=== PATIENT | male | born 1950 | race Caucasian/White ===

== ENCOUNTER 2016-08-24 10:53 | Day surgery (SDC) | payer MEDICARE ==
[2016-08-23 09:09] VITALS: BMI 22.6
[~2016-08-24 10:53] MED LIST: LACTATED RINGERS 1,000 ML IV SCH; LIDOCAINE 1% 20 ML VIAL (10MG/ML) FOR IV START INTRADERMA PRN
--- NOTE | 2016-08-24 11:14 | P.OP ---
Date of Procedure: 08/24/16 Preoperative Diagnosis: Screening colonoscopy Hypertension Hyperlipidemia Chronic low back pain Nicotine dependence Postoperative Diagnosis: Anal skin tags and 5mm flat polyp at 40 cm from anal verge Prostate enlargement Procedure(s) Performed: Colonoscopy with hot snare polypectomy x1 Implants: NA Anesthesia: MAC (ASA) Surgeon: Pooja Topete Pathology: other (colon polyp) Condition: stable Disposition: PACU Indications for Procedure: 65 years old male presents for first screening colonoscopy. No prior history of colon cancer or colon polyps. No family history of colon cancer. Informed consent obtained and he elected to undergo colonoscopy with possible biopsy Operative Findings: Anal skin tags Prostate enlargement Single 5mm flat polyp in the sigmoid colon Description of Procedure: The patient was brought to the endoscopy suite and placed in lateral decubitus position. IV sedation was given as per anesthesia team. Patient was on continuous vitals and pulse oximetry monitoring throughout the procedure. A timeout was performed to verify correct patient and correct procedure. Perianal examination did not show any external hemorrhoids. Digital rectal examination was performed. No masses or gross blood. Prostate enlargement noted. A well-lubricated Olympus colonoscope was passed per rectally and was gradually advanced beyond the sigmoid colon, splenic flexure, transverse colon, hepatic flexure and cecum. The ileocecal valve was visualized . The colonoscope was gradually withdrawn inspecting all the mucosal surfaces. Bowel prep was good. No AV malformations noted. Sigmoid diverticulosis noted without any evidence of acute diverticulitis. Single 5mm flat polyp noted in at 40 cms from the anal verge which was biopsied using cold bx forceps. The scope was gradually withdrawn and retroflexed in the rectum . Grade 1 internal hemorrhoids seen. Total withdrawal time was greater than 6 minutes . Patient tolerated the procedure well and was taken to post anesthesia care unit in stable condition. Recommend repeat colonoscopy in 5 years . Final Pathologic Diagnosis COLON, 40 CM, BIOPSY: ADENOMA.
[2016-08-24] MEDS ORDERED: LACTATED RINGERS 1,000 ML IV ONE (11:38)
[2016-08-24 11:43] VITALS: TEMP 98
[2016-08-24] MEDS ORDERED: LIDOCAINE 1% 20 ML VIAL (10MG/ML) FOR IV START INTRADERMA ONE (11:51)
[2016-08-24] MEDS ORDERED: PROPOFOL 10 MG/ML 20 ML VIAL IV ONE (12:03)
[2016-08-24] MEDS ORDERED: LIDOCAINE 1% INJ 10MG/ML (20 ML MDV) ONE (12:03)
[2016-08-24 12:37] VITALS: RESP 16
[2016-08-24 12:58] VITALS: BP 136/83; PULSE 68
== END 2016-08-24 13:28 | disposition home or self-care (01) ==
LOC: ORWHC2ENDO 10:53
PROVIDERS: ATTEND Surgery
DX: Z12.11 Encounter for screening for malignant neoplasm of colon (principal); D12.5 Benign neoplasm of sigmoid colon; K57.30 Diverticulosis of large intestine without perforation or abscess without bleeding; K64.0 First degree hemorrhoids; N40.0 Benign prostatic hyperplasia without lower urinary tract symptoms; I10 Essential (primary) hypertension; E78.5 Hyperlipidemia, unspecified; J44.9 Chronic obstructive pulmonary disease, unspecified; G89.29 Other chronic pain; M54.5 Low back pain; F17.200 Nicotine dependence, unspecified, uncomplicated; Z88.5 Allergy status to narcotic agent; Z79.1 Long term (current) use of non-steroidal anti-inflammatories (NSAID); Z79.899 Other long term (current) drug therapy
CPT/HCPCS: 45385; 88305

== ENCOUNTER 2016-09-15 09:15 | Day surgery (SDC) | payer MEDICARE ==
[2016-09-13 13:07] VITALS: BMI 22.6
--- NOTE | 2016-09-15 08:16 | P.GSHP ---
History of Present Illness H&P Date: 09/15/16 Chief Complaint: Righ inguinal hernia 65 yrs old male presents with right inguinal hernia - reducible associated with pain. No bowel obstruction. ROS Additionally reports: Constitutional: No fever, chills or rigors. No weight loss or loss of appetite. HEENT: No difficulty with hearing, vision and swallowing. Lymphatic: No axillary, inguinal and cervical swellings. Endocrine: No thyroid disorders. Denies history of diabetes. Respiratory: No chest pain, shortness of breath, and cough. No hemoptysis. Cardiovascular: No palpitations, irregular HR Gastrointestinal: Denies heartburn. No change in bowel habits. No nausea or vomiting. Genitourinary: No increase in urinary frequency or urgency. No hematuria. Musculoskeletal: No back pain, joint stiffness or pain. Neurologic: No history of seizure disorder and headaches. Psychiatric: Denies depression or anxiety . No suicidal ideation. Hematologic: Denies any abnormal mucosal bleeding or easy bruising.\\ Physical Exam Patient is a 65-year-old male. Constitutional: General Appearance: healthy-appearing, well-nourished, and well- developed. Level of Distress: NAD. Ambulation: ambulating normally. Psychiatric: Insight: good judgement. Orientation: to time, place, and person. Head: Head: normocephalic and atraumatic. Eyes: Lids and Conjunctivae: no discharge or pallor and non-injected. Sclerae: non-icteric. ENMT: Oropharynx: moist mucous membranes. Abdomen: Bowel Sounds: normal. Inspection and Palpation: no tenderness or guarding and soft and non-distended. Hernia: inguinal R; possible left inguinal as well. Musculoskeletal:: Motor Strength and Tone: normal and normal tone. Joints, Bones , and Muscles: normal movement of all extremities. Extremities: no cyanosis or edema. Neurologic: Gait and Station: normal gait and station. Cranial Nerves: grossly intact. Assessment / Plan 1. Right inuinal hernia possible bilateral 2. Informed consent obtained from the patient after explaining the risks, benefits and potential complications of laparoscopic /robotic inguinal hernia including bleeding, infection, bruising, DVT and recurrence and possibility of converting to open 3. Patient demonstrated understanding of the procedure and agreed to undergo laparoscopic/robotic inguinal hernia repair with mesh possible open 4. Expected post op course discussed including no heavy lifting >10 lbs for 6 weeks post surgery Preop orders: 1. Ancef 2 gm IVPB x1 2. Bilateral lower extremity SCDs 3. Heparin 5000 Units SQ injection x1 1. 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, "borderline diabetic", urinary urgency, spinal stenosis History of Any Multi-Drug Resistant Organisms: None Reported Past Surgical History: Back Surgery, Cholecystectomy, Orthopedic Surgery Additional Past Surgical History / Comment(s): thumb reconstruction rt hand, surgery rt hand three fingers from injury(partial ampuation first finger), mult back/cervical surgery-plate and screws, mccracken procedure rt ankle, Past Anesthesia/Blood Transfusion Reactions: Previous Problems w/ Anesthesia, Family History of Problems w/ Anesthesia, Motion Sickness Additional Past Anesthesia/Blood Transfusion Reaction / Comment(s): cardiac and respiratory arrest with two back surgeries done at another hospital in 1979 and 1981, no problems since with other surgeries. father had respiratory and cardiac problems with back surgery Past Psychological History: No Psychological Hx Reported Smoking Status: Current every day smoker Past Alcohol Use History: None Reported Additional Past Alcohol Use History / Comment(s): recovering alcoholic/ past drug use. smoked since age 12, down to 8-10 cigarettes daily Past Drug Use History: None Reported - Past Family History Father Family Medical History: Cancer Mother Family Medical History: Cancer Son(s) Family Medical History: Cancer Medications and Allergies Home Medications Medication Instructions Recorded Confirmed Type Acetaminophen [Tylenol] 1,000 mg PO TID 08/23/16 09/13/16 History Cholecalciferol [Vitamin D3] 1,000 unit PO DAILY 08/23/16 09/13/16 History Ibuprofen [Motrin] 800 mg PO Q6HR PRN 08/23/16 09/13/16 History Simvastatin [Zocor] 40 mg PO HS 08/23/16 09/13/16 History Vitamin B Complex 1 each PO DAILY 08/23/16 09/13/16 History Allergies Allergy/AdvReac Type Severity Reaction Status Date / Time codeine Allergy Anaphylaxis Verified 09/13/16 12:52 propoxyphene Allergy Anaphylaxis Verified 09/13/16 12:52 [From Misha]
[~2016-09-15 09:15] MED LIST changes: +DEXAMETHASONE SOD PHOSPHATE 10 MG/ML 1 ML VIAL IV ONE; +HEPARIN SODIUM,PORCINE 5,000 UNIT/ML 1 ML VIAL SQ ONE; -LACTATED RINGERS 1,000 ML IV SCH; -LIDOCAINE 1% 20 ML VIAL (10MG/ML) FOR IV START INTRADERMA PRN; +MIDAZOLAM 2 MG/2 ML VIAL IV PRN; +ONDANSETRON 4 MG/2 ML VIAL IVP ONE; +SCOPOLAMINE 1.5MG/72HR PATCH TRANSDERM ONE; +ceFAZolin 2 GM in SODIUM CHLORIDE 0.9% 100 ML IVPB ONE
[2016-09-15 10:02] LABS: Basophils # (A) 0.1 k/uL (0-0.2); Basophils % (A) 1 %; CH 32.2; CHCM 35.8; Eosinophils # (A) 0.4 k/uL (0-0.7); Eosinophils % (A) 4 %; HCT 47.5 % (39.0-53.0); HDW 2.91; HGB 16.3 gm/dL (13.0-17.5); Luc # (Auto) 0.12; Luc % (Auto) 1; Lymphocytes # (A) 1.9 k/uL (1.0-4.8); Lymphocytes % (A) 21 %; MCH 31.2 pg (25.0-35.0); MCHC 34.4 g/dL (31.0-37.0); MCV 90.7 fL (80.0-100.0); Mean Platelet Volume 7.9; Monocytes # (A) 0.4 k/uL (0-1.0); Monocytes % (A) 5 %; Neutrophils # (A) 6.2 k/uL (1.3-7.7); Neutrophils % (A) 69 %; RBC 5.24 m/uL (4.30-5.90); WBC 9.1 k/uL (3.8-10.6); WBC (Perox) 9.28
[2016-09-15] MEDS: LACTATED RINGERS 1,000 ML IV SCH ×2 (10:09→10:10)
[2016-09-15] MEDS ORDERED: LIDOCAINE 1% 20 ML VIAL (10MG/ML) FOR IV START INTRADERMA ONE (10:10)
[2016-09-15 10:17] LABS: Anion Gap 14 mmol/L; Blood Urea Nitrogen 18 mg/dL (9-20); Calcium 9.9 mg/dL (8.4-10.2); Carbon Dioxide 22 mmol/L (22-30); Chloride 106 mmol/L (98-107); Glucose 121 mg/dL (74-99); Non-African American GFR(MDRD) >60 (>60 ml/min/1.73 sqM); Potassium 4.3 mmol/L (3.5-5.1); Sodium 142 mmol/L (137-145)
[2016-09-15] MEDS ORDERED: LIDOCAINE 1% INJ 10MG/ML (20 ML MDV) ONE (12:34)
[2016-09-15] MEDS ORDERED: ePHEDrine 50 MG/ML 1 ML AMP ONE (12:34)
[2016-09-15] MEDS ORDERED: MIDAZOLAM 2 MG/2 ML VIAL ONE (12:34)
[2016-09-15] MEDS ORDERED: fentaNYL (PF) 50 MCG/ML 2 ML AMP ONE (12:34)
[2016-09-15] MEDS ORDERED: HYDROmorphone (PF) 1 MG/ML ONE (12:34)
[2016-09-15] MEDS ORDERED: NEOSTIGMINE 1 MG/ML 10 ML VIAL ONE (12:34)
[2016-09-15] MEDS ORDERED: SUCCINYLCHOLINE CHLORIDE 100 MG/5 ML SYR IV ONE (12:34)
[2016-09-15] MEDS ORDERED: ROCURONIUM BROMIDE 10 MG/ML 10 ML VIAL IV ONE (12:34)
[2016-09-15] MEDS ORDERED: GLYCOPYRROLATE 0.2 MG/ML 2 ML VIAL ONE (12:34)
[2016-09-15] MEDS ORDERED: PHENYLEPHRINE-0.9% NACL SYG 1 MG/10 ML SYRINGE ONE (12:34)
[2016-09-15] MEDS ORDERED: PROPOFOL 10 MG/ML 20 ML VIAL IV ONE (12:34)
[2016-09-15] MEDS ORDERED: BUPIVACAIN-EPI 0.25%-1:200,000 30 ML VIAL SQ ONE (13:15)
[2016-09-15] MEDS ORDERED: LACTATED RINGERS 1,000 ML IV ONE ×2 (13:28→15:50)
[2016-09-15 15:02] VITALS: TEMP 97.6
[2016-09-15] MEDS: HYDROmorphone 1 MG/ML 1 ML SYRINGE IVP PRN ×2 (15:08→15:13)
[2016-09-15 15:30] LABS: Glucose,Whole Blood 195 mg/dL (75-99)
[2016-09-15 15:39] VITALS: RESP 18
[2016-09-15] MEDS ORDERED: traMADol 50 MG TAB PO ONE (15:49)
[2016-09-15 16:38] VITALS: BP 129/78; PULSE 78
--- NOTE | 2016-09-20 13:40 | P.OP ---
Date of Procedure: 09/15/16 Preoperative Diagnosis: Right inguinal hernia Postoperative Diagnosis: Bilateral direct type inguinal hernias Procedure(s) Performed: Robotic-assisted laparoscopic bilateral inguinal hernia repair with mesh Implants: Covidien progrip x2 Anesthesia: ENDY local Surgeon: Pooja Topete Estimated Blood Loss (ml): 5 Pathology: none sent Condition: stable Disposition: PACU Indications for Procedure: 65 years old male presents with a right inguinal hernia. Informed consent obtained and he elected to undergo robotic-assisted laparoscopic right inguinal hernia repair with mesh possible bilateral in case of intraoperative findings of left inguinal hernia. Operative Findings: Bilateral direct type inguinal hernias Description of Procedure: The patient was brought to the operating room and placed in supine position. General anesthesia with endotracheal intubation was performed as per anesthesia team. Both arms were tucked against the abdominal wall and a shunt was positioned in lithotomy using yellowfin stirrups. A seaman catheter was inserted under sterile aseptic precautions. Chlorhexidine was used to prep the skin followed by application of sterile drapes and Ioban dressing. A timeout was performed to verify correct patient, correct procedure and correct side. Patient was confirmed to receive perioperative IV antibiotics, subcutaneous heparin 5000 units and bilateral SCDs were placed. A 2 mm skin incision was made in the left subcostal area and Veress needle was inserted to establish pneumoperitoneum to a pressure of 15 mmHg. A 1.5 cm supraumbilical incision was made which was deepened through the subcutaneous tissue . Two additional 8 mm skin incisions were made on either side of the midline approximately 8 cm away. A 5 mm 30 laparoscope was used to enter the peritoneum using direct Optiview technique. A 12 mm robotic trocar was inserted in the supraumbilical area and 8 mm robotic trocars were inserted on either side of the midline. The patient was placed in Trendelenburg position and the robot was brought in between the legs. The robotic arms including the camera arm were docked on the trocars. The robotic prograsp and monopolar scissors were introduced via arm 1 and 2 respectively. Upon inspection of the peritoneal cavity, bilateral direct hernias identified. The murphy anatomical landmarks including the pubic symphysis, median and medial umbilical ligaments and bilateral epigastric vessels were identified. Attention was focused on the left side first. Using monopolar scissors a peritoneal flap was created extending medially from the median umbilical ligament and laterally to the direct hernia space. Using gentle traction and countertraction the flap was developed posteriorly. Loose fibrofatty tissue was bluntly dissected. Medially the dissection was carried along the Sujit's ligament till pubic tubercle was identified. Care was taken to stay away from the urinary bladder. Dissection was carried out to leave the epigastric vessels against the anterior abdominal wall and laterally beyond the hernia defect. The direct hernia sac was completely reduced. The iliofemoral vessels were identified. The peritoneal reflection overlying the spermatic cord was also dissected off. Care was taken not to injure any gonadal vessels or spermatic cord. Enough inferior dissection was carried out 2 cm below the hernia defect. No indirect hernia noted. Attention was then focused on the right side where similar dissection was performed to identify the above-mentioned murphy anatomical landmarks. Gentle traction and countertraction helped in reduction of the hernia sac. No bleeding was encountered. The iliofemoral vessels, spermatic cord and vas deferens were protected at all times. Laparoscopic parietex progrip mesh was rolled and introduced through the 12 mm camera port. The right mesh was placed in the preperitoneal cavity with green portion overlying the pubic tubercle . The mesh was rolled upwards so that the mesh covered the direct , indirect inguinal hernia and the femoral hernia space without any kinks or folds. Similarly left parietex progrip mesh was rolled and introduced through the 12 mm camera port and secured over the right direct, indirect and femoral hernia space. The peritoneal flap was then sutured to the cut edge of the peritoneum using continuous 2-0 V lock sutures. The hernia sacs were completely reduced and the mesh lay flat without any kinks or folds. The 12 mm trocar site was closed with 0 vicryl x2 using Pascual Fontenot device. The incisions were closed using 4-0 Monocryl. Dermabond skin glue was applied. The sponge, instrument and needle count were correct 2. The testicles were palpated. Seaman catheter was removed at the end of the procedure
== END 2016-09-15 16:39 | disposition home or self-care (01) ==
LOC: OR 09:15
PROVIDERS: ATTEND Surgery
DX: K40.20 Bilateral inguinal hernia, without obstruction or gangrene, not specified as recurrent (principal); I10 Essential (primary) hypertension; E78.5 Hyperlipidemia, unspecified; J44.9 Chronic obstructive pulmonary disease, unspecified; F17.200 Nicotine dependence, unspecified, uncomplicated; Z88.5 Allergy status to narcotic agent; Z79.899 Other long term (current) drug therapy
CPT/HCPCS: 49650; 80048; 85025; C1781; J2250; J1644; J1100; J2710; J0690; J2405; J2001; J3010; J1170; J2370; J0330; J2704

== ENCOUNTER 2018-08-20 11:46 | Observation (INO) | payer MEDICARE ==
[2018-08-20] MEDS ORDERED: SODIUM CHLORIDE 0.9% 1,000 ML IV STA ×2 (12:09)
--- NOTE | 2018-08-20 12:12 | ED ---
Chest Pain HPI - General Chief Complaint: Chest Pain Stated Complaint: Chest pain Time Seen by Provider: 08/20/18 11:50 Source: RN notes reviewed, old records reviewed - History of Present Illness Initial Comments: Patient is a 67-year-old male presents emergency department today with 1 day of dull left-sided chest pain radiating down left arm. Patient states that he was seeing his primary care physician today and told him his complaints and was sent here via EMS. Patient had normal EKG at that time. He reports is a smoker and a diabetic. 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 Patient reports that was done 2017. Patient reports that he was feeling dizzy and lightheaded. He denies any nausea or vomiting or abdominal pain. - Related Data Home Medications Medication Instructions Recorded Confirmed Acetaminophen [Tylenol] 1,000 mg PO QAM 08/23/16 08/20/18 Simvastatin [Zocor] 40 mg PO HS 08/23/16 08/20/18 Acetaminophen Tab [Tylenol Tab] 500 mg PO HS 08/20/18 08/20/18 Aspirin EC [Ecotrin] 325 mg PO DAILY 08/20/18 08/20/18 Biotin 5 mg PO DAILY 08/20/18 08/20/18 Insulin Glargine,Hum.rec.anlog 7 unit SQ HS 08/20/18 08/20/18 [Basaglar Kwikpen U-100] metFORMIN HCL ER [Glucophage Xr] 1,000 mg PO [id number] 08/20/18 08/20/18 Allergies Allergy/AdvReac Type Severity Reaction Status Date / Time codeine Allergy Anaphylaxis Verified 08/20/18 12:31 propoxyphene Allergy Anaphylaxis Verified 08/20/18 12:31 [From Darvocet-N] Review of Systems ROS Statement: Those systems with pertinent positive or pertinent negative responses have been documented in the HPI. ROS Other: All systems not noted in ROS Statement are negative. EKG Findings - EKG Comments: EKG Findings:: EKG Normal sinus rhythm Abnormal QRS-T angle consider primary T wave abnormality. Vent rate 70 bpm, HI interval 150 ms. QRS duation 92 ms. Qt/ATc 386/416 ms. Past Medical History Past Medical History: COPD, Eye Disorder, Hyperlipidemia, Hypertension Additional Past Medical History / Comment(s): having mucus emesis when eating foods with first time eating of the day,no longer taking Rx for Htn,rt inguinal hernia,"borderline diabetes",legally blind rt eye History of Any Multi-Drug Resistant Organisms: None Reported Past Surgical History: Back Surgery, Cholecystectomy, Orthopedic Surgery Additional Past Surgical History / Comment(s): cervical fusion x2,lumbar fusion,lumbar laminectomy x2,rt thumb jt repair,rt partial amputation rt hand 5th digit,rt hand ORIF Past Anesthesia/Blood Transfusion Reactions: Previous Problems w/ Anesthesia, Family History of Problems w/ Anesthesia Additional Past Anesthesia/Blood Transfusion Reaction / Comment(s): had resp arrest in 1979 with back surgery and 1981 with resp & cardiac arrest with 2nd back surgery, has had several surgeries since then without complications. Father in 1969's had chills,tachycardia,and shakes with anesthesia. No hx blood transfusion Additional Past Alcohol Use History / Comment(s): smoked since age 12,1/2ppd - Past Family History Father Family Medical History: Cancer Additional Family Medical History / Comment(s): alcoholism, at age 82 with lung CA with mets Mother Family Medical History: Cancer Additional Family Medical History / Comment(s): brain CA Son(s) Family Medical History: Cancer General Exam - General Exam Comments Initial Comments: Patient is a 67-year-old male. Alert and oriented 3. Patient appears in moderate discomfort. General appearance: alert, in no apparent distress Head exam: Present: atraumatic, normocephalic, normal inspection Eye exam: Present: normal appearance, PERRL, EOMI. Absent: scleral icterus, conjunctival injection, periorbital swelling ENT exam: Present: normal exam, mucous membranes moist Neck exam: Present: normal inspection. Absent: tenderness, meningismus, lymphadenopathy Respiratory exam: Present: normal lung sounds bilaterally. Absent: respiratory distress, wheezes, rales, rhonchi, stridor Cardiovascular Exam: Present: regular rate, normal rhythm, normal heart sounds, other (Normal pulses in all four extremities noted.). Absent: systolic murmur, diastolic murmur, rubs, gallop, clicks GI/Abdominal exam: Present: soft, normal bowel sounds. Absent: distended, tenderness, guarding, rebound, rigid Extremities exam: Present: normal inspection, full ROM, normal capillary refill. Absent: tenderness, pedal edema, joint swelling, calf tenderness Back exam: Present: normal inspection Neurological exam: Present: alert, oriented X3, CN II-XII intact Psychiatric exam: Present: normal affect, normal mood Skin exam: Present: warm, dry, intact, normal color. Absent: rash Course Vital Signs 08/20/18 12:05 Temperature 97.2 F L Pulse Rate 71 Respiratory 18 Rate Blood Pressure 156/95 O2 Sat by Pulse 98 Oximetry Chest Pain MDM - MDM Patient is a 67-year-old male with history of diabetes a smoker presents emergency department today with chest pain. He was seen his PCP office complaint of chest pain and dizziness and was sent here via EMS. At this time EKG shows no acute ST elevation. There are some T-wave inversion over lead 3. He has a positive family history of heart disease. Lab work was otherwise unremarkable. Chest x-ray shows chronic pain changes without acute cardio pulmonary process. Possible full-thickness rotator cuff tear on the right. At this time and like to admit the Patient for ruling out acute coronary syndrome related to chest pain. Disposition Clinical Impression: Chest pain, Diabetes, Smoker Disposition: ADMITTED IP TO THIS HOSP Condition: Stable Is patient prescribed a controlled substance at d/c from ED?: No Referrals: Alexandro Emery MD [Primary Care Provider] - 1-2 days Time of Disposition: 14:55
[2018-08-20 12:54] LABS: Basophils # (A) 0.1 k/uL (0-0.2); Basophils % (A) 1 %; Eosinophils # (A) 0.6 k/uL (0-0.7); Eosinophils % (A) 6 %; HCT 48.3 % (39.0-53.0); Lymphocytes # (A) 1.9 k/uL (1.0-4.8); Lymphocytes % (A) 21 %; MCH 31.1 pg (25.0-35.0); MCV 94.2 fL (80.0-100.0); Mean Platelet Volume 7.4; Monocytes # (A) 0.5 k/uL (0-1.0); Monocytes % (A) 5 %; Neutrophils # (A) 5.9 k/uL (1.3-7.7); Neutrophils % (A) 65 %; Platelet Count 211 k/uL (150-450); RBC 5.13 m/uL (4.30-5.90); RDW 12.8 % (11.5-15.5); WBC 9.1 k/uL (3.8-10.6)
--- NOTE | 2018-08-20 13:15 | XR ---
EXAMINATION TYPE: XR chest 2V DATE OF EXAM: 08/20/2018 COMPARISON: None HISTORY: 67-year-old male with chest pain TECHNIQUE: PA and lateral views FINDINGS: Heart normal size. Aorta and pulmonary vasculature within normal limits. Some strandy atelectasis in the lower lungs. No consolidation or pleural effusion. Loss of the subacromial space on the right. IMPRESSION: Chronic appearing changes without acute cardiopulmonary process. Possible full-thickness rotator cuff tear on the right.
[2018-08-20 13:30] LABS: Partial Thromboplastin Time 24.6 sec (22.0-30.0); Prothrombin Time 10.4 sec (9.0-12.0)
[2018-08-20 13:31] LABS: ALT 30 U/L (21-72); AST 14 U/L (17-59); Albumin 4.1 g/dL (3.5-5.0); Alkaline Phosphatase 41 U/L (38-126); Anion Gap 8 mmol/L; Blood Urea Nitrogen 19 mg/dL (9-20); Calcium 9.4 mg/dL (8.4-10.2); Carbon Dioxide 22 mmol/L (22-30); Chloride 111 mmol/L (98-107); Glucose 111 mg/dL (74-99); Potassium 4.2 mmol/L (3.5-5.1); Sodium 141 mmol/L (137-145); Total Bilirubin 0.5 mg/dL (0.2-1.3); Total Protein 6.7 g/dL (6.3-8.2)
[2018-08-20] MEDS ORDERED: NITROGLYCERIN SL TABS 0.4 MG TAB SUBLINGUAL PRN (14:59)
[2018-08-20 16:24] LABS: Glucose,Whole Blood 100 mg/dL (75-99)
[2018-08-20] MEDS: MORPHINE SULFATE 4 MG/ML SYRINGE IV PRN ×2 (18:10→20:43)
[2018-08-20 20:15] LABS: Glucose,Whole Blood 161 mg/dL (75-99)
[2018-08-20] MEDS ORDERED: INSULIN DETEMIR (LEVEMIR) 100 UNIT/ML SYR SQ SCH (21:00)
[2018-08-20] MEDS ORDERED: ACETAMINOPHEN TAB 500 MG TAB PO SCH (21:00)
[2018-08-20] MEDS ORDERED: ATORVASTATIN 20 MG TAB PO SCH (21:00)
[2018-08-20] MEDS ORDERED: NICOTINE 14MG/24HR PATCH TRANSDERM SCH (23:00)
--- NOTE | 2018-08-21 01:34 | HP ---
HISTORY AND PHYSICAL DATE OF ADMISSION: August 20, 2018. DATE OF SERVICE: August 20, 2018. PRESENTING COMPLAINT: Chest pain. HISTORY OF PRESENTING COMPLAINT: Pleasant 67 -year-old patient of Dr. Emery whose chronic stable medical conditions include COPD, hyperlipidemia, decreased vision in the right eye, only can perceive light and diabetes. Around 2 o'clock yesterday, patient developed pain in the left precordial area and above infraclavicular area, pretty severe. This was present off and on. The pain did go up to the neck and the arm. Also the pain was present when he took a deep breath, more so with body movements. There was no dizziness. No lightheadedness. No shortness of breath. Hence little perspiration. The pain has persisted. Thus, the patient decided to come in to rule out a cardiac cause. Does not remember doing any excessive physical activity. REVIEW OF SYSTEMS: CONSTITUTIONAL: None. HEENT: Decreased vision right eye. RESPIRATORY: As above. CARDIOVASCULAR: As above. GASTROINTESTINAL: None. GENITOURINARY: None. MUSCULOSKELETAL: As above. DERMATOLOGICAL, HEMATOLOGIC, LYMPHATIC: none. PSYCHIATRY none. NEUROLOGICAL none. PAST MEDICAL HISTORY: COPD, hyperlipidemia, decreased vision in the right eye, diabetes. PAST SURGICAL HISTORY: Back surgery, cholecystectomy, orthopedic surgeries, cervical fusion x2, lumbar fusion, lumbar laminectomy, right thumb joint repair, partial amputation, right hand 5th digit, right hand ORIF, left subclavian stent with 90% occlusion left arm, also had respiratory arrest in 1979 with back surgery in 1991 with respiratory and cardiac arrest with second back surgery and has also had multiple surgeries since then without complications. SOCIAL HISTORY: Smoking 1/2 a pack a day over 55 years. No alcohol. . Currently laid off. Works at the [employer] in [place]. FAMILY HISTORY: Of cancer, alcoholism, and lung cancer. HOME MEDICATIONS: 1. Insulin 70 units subcu q.h.s. 2. Aspirin 325 mg a day. 3. Glucophage XR 1000 mg with breakfast. 4. Biotin 5 mg p.o. daily. 5. Tylenol 500 mg q.h.s. 6. Zocor 40 mg q.h.s. 7. Tylenol 1000 mg p.o. daily. ALLERGIES: ALLERGIES TO CODEINE AND DARVOCET-N 100. EXAMINATION: VITAL SIGNS: Temperature 97.9, pulse 65, respiration 16, blood pressure 123/59, pulse ox 96 percent on room air. GENERAL APPEARANCE: Lying in bed, awake. EYES: Pupils equal. Conjunctivae normal. Decreased vision in the right eye. RESPIRATORY: Effort normal. LUNGS: Slightly decreased breath sounds. CARDIOVASCULAR: First and second sounds normal. No edema. ABDOMEN: Soft, nontender. Liver and spleen not palpable. LYMPHATICS: No lymph nodes palpable in the neck and axilla. PSYCHIATRY: Alert and oriented x3. Mood and affect normal. NEUROLOGICAL: Decreased vision in the right eye. No facial asymmetry. Power and sensation grossly intact. MUSCULOSKELETAL: Reproducible pain in the left anterior chest wall. INVESTIGATIONS: White count 9.1, hemoglobin 16.0, potassium 4.2. BUN and creatinine is normal. Troponin times two negative. EKG tracing personally reviewed by me shows normal sinus rhythm, some normal some T-wave changes in the inferior leads. Chest x-ray film personally reviewed by me shows lung gutierrez to be clear. ASSESSMENT: 1. Left anterior chest wall pain, musculoskeletal. Most likely reproducible, pleuritic and musculoskeletal nature, but given slight subtle EKG changes and risk factors, cardiac cause needs to be ruled out. 2. Chronic obstructive pulmonary disease in a current smoker. 3. Hyperlipidemia. 4. Decreased vision in the right eye. 5. Diabetes mellitus type 2, chronically on insulin. PLAN: Home medications are resumed. Cardiac enzymes are in place. Accu-Cheks will be followed. Cardiology was consulted. Care was discussed with the patient. Copy to Dr. Emery. MMODL / IJN: [id number] /
[2018-08-21] MEDS: MORPHINE SULFATE 4 MG/ML SYRINGE IV PRN ×2 (02:05→03:13)
[2018-08-21 03:55] LABS: Cholesterol 99 mg/dL (<200); HDL Cholesterol 33 mg/dL (40-60); LDL Cholesterol,Calculated 46 mg/dL (0-99); Triglycerides 101 mg/dL (<150)
[2018-08-21 06:51] LABS: Glucose,Whole Blood 105 mg/dL (75-99)
[2018-08-21] MEDS ORDERED: metFORMIN 500 MG TAB PO SCH (07:30)
[2018-08-21] MEDS ORDERED: REGADENOSON 0.4 MG/5 ML SYRINGE IV ONE (07:46)
[2018-08-21] MEDS ORDERED: CAFFEINE CITRATE 60 MG/3 ML VIAL IV PRN (07:46)
[2018-08-21 07:48] VITALS: RESP 18
--- NOTE | 2018-08-21 07:51 | P.CRDCN ---
History of Present Illness Consult date: 08/21/18 Chief complaint: cp History of present illness: This is a pleasant 67-year-old gentleman with a past medical history significant for diabetes, hypertension, dyslipidemia, and history of smoking, was referred from his primary care physician for further evaluation of chest discomfort. For the last few days, the patient has been experiencing intermittent episodes of chest discomfort. Is in the mid of the chest, as a sharp kind of discomfort , without any radiation, and without any significant symptoms of shortness of breath, dizziness or light this, or syncope. The EKG showed sinus rhythm with nonspecific changes inferiorly. The cardiac enzymes were checked and came in to be unremarkable. The chest x-ray showed evidence off left sided rotator cuff tear. 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 Past Anesthesia/Blood Transfusion Reactions: Previous Problems w/ Anesthesia, Family History of Problems w/ Anesthesia Additional Past Anesthesia/Blood Transfusion Reaction / Comment(s): had resp arrest in 1979 with back surgery and 1981 with resp & cardiac arrest with 2nd back surgery, has had several surgeries since then without complications. Father in 1969's had chills,tachycardia,and shakes with anesthesia. 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 - Past Family History Father Family Medical History: Cancer Additional Family Medical History / Comment(s): alcoholism, at age 82 with lung CA with mets Mother Family Medical History: Cancer Additional Family Medical History / Comment(s): brain CA Son(s) Family Medical History: Cancer Medications and Allergies Home Medications Medication Instructions Recorded Confirmed Type Acetaminophen [Tylenol] 1,000 mg PO QAM 08/23/16 08/20/18 History Simvastatin [Zocor] 40 mg PO HS 08/23/16 08/20/18 History Acetaminophen Tab [Tylenol Tab] 500 mg PO HS 08/20/18 08/20/18 History Aspirin EC [Ecotrin] 325 mg PO DAILY 08/20/18 08/20/18 History Biotin 5 mg PO DAILY 08/20/18 08/20/18 History Insulin Glargine,Hum.rec.anlog 7 unit SQ HS 08/20/18 08/20/18 History [Basaglar Kwikpen U-100] metFORMIN HCL ER [Glucophage Xr] 1,000 mg PO AC-BRKFST 08/20/18 08/20/18 History Allergies Allergy/AdvReac Type Severity Reaction Status Date / Time codeine Allergy Anaphylaxis Verified 08/20/18 12:31 propoxyphene Allergy Anaphylaxis Verified 08/20/18 12:31 [facility] Physical Exam Vitals: Vital Signs Temp Pulse Pulse Resp BP BP Pulse Ox 08/21/18 03:26 16 08/21/18 03:18 97.5 F L 66 16 107/70 97 08/20/18 23:51 97.6 F 60 18 123/75 98 08/20/18 23:34 16 08/20/18 20:00 16 08/20/18 19:41 97.9 F 65 16 123/69 96 08/20/18 16:00 18 08/20/18 15:45 97.4 F L 62 18 143/87 99 08/20/18 15:09 71 18 142/87 98 08/20/18 13:11 69 18 147/89 92 L 08/20/18 12:11 77 18 156/96 98 08/20/18 12:05 97.2 F L 71 18 156/95 98 Intake and Output 08/20/18 08/21/18 08/21/18 22:59 06:59 14:59 Intake Total 200 Balance 200 Intake: Oral 200 Other: Voiding Method Toilet Toilet # Voids 1 - Constitutional General appearance: no acute distress - Respiratory Respiratory: bilateral: CTA - Cardiovascular Rhythm: regular Heart sounds: normal: S1, S2 Results 08/20/18 12:17 08/20/18 13:11 Cardiac Enzymes 08/20/18 08/20/18 08/20/18 Range/Units 13:11 13:11 18:42 AST 14 L (17-59) U/L Troponin I <0.012 <0.012 (0.000-0.034) ng/mL 08/21/18 Range/Units 01:08 AST (17-59) U/L Troponin I <0.012 (0.000-0.034) ng/mL Coagulation 08/20/18 Range/Units 13:11 PT 10.4 (9.0-12.0) sec APTT 24.6 (22.0-30.0) sec Lipids 08/20/18 Range/Units 13:11 Triglycerides 101 (<150) mg/dL Cholesterol 99 (<200) mg/dL HDL Cholesterol 33 L (40-60) mg/dL CBC 08/20/18 Range/Units 12:17 WBC 9.1 (3.8-10.6) k/uL RBC 5.13 (4.30-5.90) m/uL Hgb 16.0 (13.0-17.5) gm/dL Hct 48.3 (39.0-53.0) % Plt Count 211 (150-450) k/uL Comprehensive Metabolic Panel 08/20/18 Range/Units 13:11 Sodium 141 (137-145) mmol/L Potassium 4.2 (3.5-5.1) mmol/L Chloride 111 H (98-107) mmol/L Carbon Dioxide 22 (22-30) mmol/L BUN 19 (9-20) mg/dL Creatinine 0.77 (0.66-1.25) mg/dL Glucose 111 H (74-99) mg/dL Calcium 9.4 (8.4-10.2) mg/dL AST 14 L (17-59) U/L ALT 30 (21-72) U/L Alkaline Phosphatase 41 (38-126) U/L Total Protein 6.7 (6.3-8.2) g/dL Albumin 4.1 (3.5-5.0) g/dL Current Medications Generic Name Dose Route Start Last Admin Trade Name Freq PRN Reason Stop Dose Admin Acetaminophen 1,000 mg 08/21/18 09:00 Tylenol Tab PO QAM CHAMP Acetaminophen 500 mg 08/20/18 21:00 08/20/18 20:43 Tylenol Tab PO 500 mg HS CHAMP Administration Aspirin 325 mg 08/21/18 09:00 Aspirin PO DAILY CHAMP Atorvastatin Calcium 20 mg 08/20/18 21:00 08/20/18 20:43 Lipitor PO 20 mg HS CHAMP Administration Insulin Detemir 7 unit 08/20/18 21:00 08/20/18 20:44 Levemir SQ 7 unit HS [facility]–1983 Administration Metformin HCl 500 mg 08/21/18 07:30 Glucophage PO BID-W/MEALS CHAMP Morphine Sulfate 4 mg 08/20/18 14:59 08/21/18 03:13 Morphine Sulfate (Inj) IV 4 mg Q5M PRN Administration Chest Pain Nicotine 1 patch 08/20/18 23:00 08/20/18 23:53 Habitrol 14mg/24hr Patch TRANSDERM 1 patch DAILY@2100 CHAMP Administration Nitroglycerin 0.4 mg 08/20/18 14:59 Nitrostat SUBLINGUAL Q5M PRN Chest Pain Intake and Output 08/20/18 08/21/18 08/21/18 22:59 06:59 14:59 Intake Total 200 Balance 200 Intake: Oral 200 Other: Voiding Method Toilet Toilet # Voids 1 08/20/18 12:17 08/20/18 13:11 Assessment and Plan Assessment: Assessment #1 intermittent episodes of chest discomfort #2 multiple risk factors for CAD including diabetes, hypertension, dyslipidemia , and history of smoking Plan #1 the patient was ruled out for acute coronary event #2 I am concerned about severe underlying coronary artery disease. I will obtain a stress test. #3 echocardiogram was Doppler #4 follow-up with the patient Thank you for allowing us participate in his care and we'll continue following up with the patient
[2018-08-21] MEDS ORDERED: NON-FORMULARY DRUG (Aspirin Ec 325 MG) PO SCH (09:00)
[2018-08-21] MEDS ORDERED: NON-FORMULARY DRUG (Biotin [Biotin] 5 MG) PO SCH (09:00)
[2018-08-21] MEDS ORDERED: ACETAMINOPHEN TAB 500 MG TAB PO SCH (09:00)
[2018-08-21] MEDS ORDERED: ASPIRIN 325 MG TAB PO SCH (09:00)
[2018-08-21 11:57] LABS: Glucose,Whole Blood 162 mg/dL (75-99)
--- NOTE | 2018-08-21 12:42 | NM ---
EXAMINATION TYPE: NM stress lexiscan cardiolite DATE OF EXAM: 08/21/2018 COMPARISON: NONE HISTORY: History of tobacco use, hypercholesteremia, and family history of coronary artery disease pr ior heart catheterization presents with chest pain TECHNIQUE: After the intravenous administration of 9.58 mCi Tc 99m Sestamibi - Cardiolite resting SP ECT images acquired 45 minutes post injection. The patient received 0.4mg Lexiscan, 25.4 mCi Tc 99m Sestamibi - Stress images obtained [address] injection FINDINGS: Review of stress and rest SPECT images demonstrates no distinct perfusion abnormality. Gated analysi s shows normal wall motion with an estimated left ventricular ejection fraction of 71 %. IMPRESSION: No scintigraphic evidence for reversible ischemia.
[2018-08-21 13:00] LABS: Hemoglobin A1C 6.8 % (4.0-6.0)
[2018-08-21 15:52] VITALS: BP 128/71; PULSE 69; TEMP 98.3
--- NOTE | 2018-08-21 19:01 | ECHOF ---
Referral Reason:cp MEASUREMENTS -------- HEIGHT: 165.1 cm WEIGHT: 66.7 kg BP: IVSd: 1.2 cm (0.6 - 1.1) LVIDd: 3.9 cm (3.9 - 5.3) LVPWd: 1.1 cm (0.6 - 1.1) IVSs: 1.4 cm LVIDs: 4.0 cm LVPWs: 1.4 cm LA Diam: 3.3 cm (2.7 - 3.8) Ao Diam: 2.7 cm (2.0 - 3.7) AV Cusp: 1.8 cm (1.5 - 2.6) LA Diam: 3.4 cm (2.7 - 3.8) MV EXCURSION: 17.701 mm (> 18.000) MV EF SLOPE: 123 mm/s (70 - 150) EPSS: 0.7 cm MV E Cheng: 0.60 m/s MV DecT: 195 ms MV A Cheng: 0.81 m/s MV E/A Ratio: 0.74 RAP: 5.00 mmHg RVSP: 16.30 mmHg FINDINGS -------- Sinus rhythm. This was a technically adequate study. The left ventricular size is normal. There is borderline concentric left ventricular hypertrophy. Overall left ventricular systolic function is normal with, an EF between 55 - 60 %. The right ventricle is normal in size. The left atrial size is normal. The right atrial size is normal. The aortic valve is trileaflet, and appears structurally normal. No aortic stenosis or regurgitation. Mild mitral annular calcification present. Mild mitral regurgitation is present. Mild tricuspid regurgitation present. There is no evidence of pulmonary hypertension. The right v entricular systolic pressure, as measured by Doppler, is 16.30mmHg. There is no pulmonic regurgitation present. The aortic root size is normal. There is no pericardial effusion. CONCLUSIONS -------- 1. The left ventricular size is normal. 2. There is borderline concentric left ventricular hypertrophy. 3. Overall left ventricular systolic function is normal with, an EF between 55 - 60 %. 4. The right ventricle is normal in size. 5. The left atrial size is normal. 6. The right atrial size is normal. 7. The aortic valve is trileaflet, and appears structurally normal. No aortic stenosis or regurgitati on. 8. Mild mitral annular calcification present. 9. Mild mitral regurgitation is present. 10. Mild tricuspid regurgitation present. 11. There is no evidence of pulmonary hypertension. 12. The right ventricular systolic pressure, as measured by Doppler, is 16.30mmHg. 13. There is no pulmonic regurgitation present. 14. The aortic root size is normal. 15. There is no pericardial effusion. PRODUCTION RECOVERY OPERATOR: Aiad Escudero RDCS
--- NOTE | 2018-08-21 20:23 | EST ---
EXERCISE STRESS DATE OF SERVICE: 08/21/2018 AGE: 67 SEX: Male. HT: 5'6" WT: 147 pounds. PROTOCOL: Lexiscan Cardiolite STAGE: DURATION OF EXERCISE: HEART RATE REST: 70 BLOOD PRESSURE REST: 159/62 MAXIMUM HEART RATE ACHIEVED: 95 MAXIMUM BLOOD PRESSURE: 159/62 85% MPHR: 100% MPHR: METS: INDICATIONS: Chest pain. CLINICAL INFORMATION: STRESS DATA: Pre-testing physical examination showed heart rate of 70, pressure 159/62 mmHg. Baseline EKG showed sinus mechanism. Lexiscan 0.4 mg was given over 15 seconds per protocol. Max heart rate was 95 beats per minute. Maximum pressure was 147/70 mmHg. Clinically the patient did not have any symptoms of chest pain or discomfort and the EKG did not show any significant changes. CONCLUSION: 1. Nondiagnostic electrocardiogram stress testing in response to Lexiscan. 2. Please follow up on the Cardiolite portion on separate report. MMODL / IJN: [id number] /
--- NOTE | 2018-08-22 07:06 | DS ---
DISCHARGE SUMMARY DATE OF ADMISSION: 08/20/2018 DATE OF DISCHARGE: 08/21/2018 FINAL DIAGNOSES: 1. Left anterior chest wall , likely musculoskeletal. 2. Chronic obstructive pulmonary disease, in a current smoker. 3. Hyperlipidemia. 4. Decreased vision in the right eye. 5. Diabetes mellitus type 2, chronically on insulin. HOSPITAL COURSE: This patient presented with left-sided chest pain, reproducible. Troponins were negative. Seen by Cardiology. Did have a nuclear stress test per Cardiology. Patient was cleared. PHYSICAL EXAMINATION: On examination, temperature 98.3 pulse 69, respiration 18, blood pressure 128/71, pulse ox 96% on room air. CARDIOVASCULAR: First and second sounds normal. Left anterior chest wall reproducible pain. CONSULTATION: Dr. Helms from Cardiology. DISCHARGE MEDICATIONS: 1. Tylenol 1000 mg p.o. daily. 2. Zocor 40 mg q.h.s. 3. Aspirin 325 p.o. daily. 4. Biotin 5 mg p.o. daily. 5. Insulin glargine 7 units subcu q.h.s. 6. Glucophage XR 1000 mg p.o. with breakfast. 7. Nicotine 14 mg patch. Follow up with Dr. Emery in 3 days. Follow up with Dr. Helms in 2 weeks. MMODL / IJN: [id number] /
== END 2018-08-21 16:00 | disposition home or self-care (01) ==
LOC: EC 11:46 → 1SOBS 15:03
PROVIDERS: ADMIT Hospitalist; ATTEND Hospitalist
DX: R07.89 Other chest pain (principal); E11.9 Type 2 diabetes mellitus without complications; I10 Essential (primary) hypertension; R42 Dizziness and giddiness; J44.9 Chronic obstructive pulmonary disease, unspecified; F17.210 Nicotine dependence, cigarettes, uncomplicated; M75.100 Unspecified rotator cuff tear or rupture of unspecified shoulder, not specified as traumatic; E78.5 Hyperlipidemia, unspecified; H54.8 Legal blindness, as defined in USA; Z79.82 Long term (current) use of aspirin; Z79.4 Long term (current) use of insulin; Z88.5 Allergy status to narcotic agent; Z90.49 Acquired absence of other specified parts of digestive tract; Z98.1 Arthrodesis status; Z89.021 Acquired absence of right finger(s); F10.21 Alcohol dependence, in remission; Z87.09 Personal history of other diseases of the respiratory system; Z86.74 Personal history of sudden cardiac arrest; Z95.828 Presence of other vascular implants and grafts; Z80.1 Family history of malignant neoplasm of trachea, bronchus and lung; Z81.1 Family history of alcohol abuse and dependence; Z82.49 Family history of ischemic heart disease and other diseases of the circulatory system
CPT/HCPCS: 96374; 96376 ×2; 96361; 99285; 36415; 93005; 93017; 93306; 83880; 80061; 80053; 83735; 84484 ×2; 85025; 85610; 85730; 83036; 71046; 78452; G0378 ×2; A9500; S4990; J2270 ×2; J2785

== ENCOUNTER 2019-06-24 15:28 | Emergency (ER) | payer MEDICARE ==
--- NOTE | 2019-06-24 16:03 | ED ---
Headache HPI - General Source: patient, RN notes reviewed Mode of arrival: ambulatory Limitations: no limitations <Hugo Ariza - Last Filed: 06/24/19 16:01> <Alexandro Ramos - Last Filed: 06/24/19 17:14> - General Stated Complaint: headache Time Seen by Provider: 06/24/19 16:00 - History of Present Illness Initial Comments: 68-year-old presents emergency Department with chief complaint of headache since Sunday morning. Patient states this is typical for him. He normally does not get headaches. Patient states he only has vision of his left eye secondary to being blind in his right since . Patient states he is having some visual changes on the left. Denies any trauma denies fevers or chills. Patient states the pain is at the base of his head and goes radiates up. His been taking Tylenol twice a day. (Hugo Ariza) - Related Data Home Medications Medication Instructions Recorded Confirmed Acetaminophen [Tylenol] 1,000 mg PO QAM 08/23/16 08/20/18 Simvastatin [Zocor] 40 mg PO HS 08/23/16 08/20/18 Acetaminophen Tab [Tylenol] 500 mg PO HS 08/20/18 08/20/18 Aspirin EC [Ecotrin] 325 mg PO DAILY 08/20/18 08/20/18 Biotin 5 mg PO DAILY 08/20/18 08/20/18 Insulin Glargine,Hum.rec.anlog 7 unit SQ HS 08/20/18 08/20/18 [Basaglar Kwikpen U-100] metFORMIN HCL ER [Glucophage Xr] 1,000 mg PO AC-BRKFST 08/20/18 08/20/18 Previous Rx's Medication Instructions Recorded Nicotine 14Mg/24Hr Patch [Habitrol] 1 patch TRANSDERM DAILY@2100 #14 08/21/18 patch Allergies Allergy/AdvReac Type Severity Reaction Status Date / Time codeine Allergy Anaphylaxis Verified 06/24/19 16:04 propoxyphene Allergy Anaphylaxis Verified 06/24/19 16:04 [From Misha] Review of Systems ROS Other: All systems not noted in ROS Statement are negative. <Hugo Ariza - Last Filed: 06/24/19 16:01> ROS Other: All systems not noted in ROS Statement are negative. <RoskoppAlexandro Dez - Last Filed: 06/24/19 17:14> ROS Statement: Those systems with pertinent positive or pertinent negative responses have been documented in the HPI. 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 Past Anesthesia/Blood Transfusion Reactions: Previous Problems w/ Anesthesia, Family History of Problems w/ Anesthesia Additional Past Anesthesia/Blood Transfusion Reaction / Comment(s): had resp arrest in 1979 with back surgery and 1981 with resp & cardiac arrest with 2nd back surgery, has had several surgeries since then without complications. Father in 1969's had chills,tachycardia,and shakes with anesthesia. 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 - Past Family History Father Family Medical History: Cancer Additional Family Medical History / Comment(s): alcoholism, at age 82 with lung CA with mets Mother Family Medical History: Cancer Additional Family Medical History / Comment(s): brain CA Son(s) Family Medical History: Cancer <Hugo Ariza - Last Filed: 06/24/19 16:01> Course Vital Signs 06/24/19 06/24/19 06/24/19 16:00 16:04 17:04 Temperature 97.6 F Pulse Rate 83 70 69 Respiratory 20 20 20 Rate Blood Pressure 159/89 147/70 148/73 O2 Sat by Pulse 98 97 98 Oximetry Disposition <Hugo Ariza - Last Filed: 06/24/19 16:01> Is patient prescribed a controlled substance at d/c from ED?: No <Alexandro Ramos - Last Filed: 06/24/19 17:14> Clinical Impression: Headache, Cervical sprain Disposition: HOME SELF-CARE Condition: Good Instructions (If sedation given, give patient instructions): Acute Headache (ED) Referrals: Alexandro Emery MD [Primary Care Provider] - 1-2 days
[2019-06-24 16:04] VITALS: RESP 20; TEMP 97.6
--- NOTE | 2019-06-24 16:52 | CT ---
EXAMINATION TYPE: CT brain wo con DATE OF EXAM: 06/24/2019 COMPARISON: None HISTORY: headache CT DLP: 1063.4 mGycm Automated exposure control for dose reduction was used. Multiple axial sections were obtained of the brain without contrast. FINDINGS: Ventricles have normal size. There is no mass effect nor midline shift. There is no sign of intracran ial hemorrhage. Calvarium is intact. IMPRESSION: Negative unenhanced head CT scan.
[2019-06-24 17:11] VITALS: BP 148/73; PULSE 69
[2019-06-24] MEDS ORDERED: DEXAMETHASONE 4 MG TAB PO STA (17:13)
[2019-06-24] MEDS ORDERED: KETOROLAC 60 MG/2 ML VIAL IM STA (17:13)
--- NOTE | 2019-06-24 18:11 | ED ---
Headache HPI - General Chief Complaint: Headache Stated Complaint: headache Time Seen by Provider: 06/24/19 16:00 Source: RN notes reviewed, old records reviewed Mode of arrival: ambulatory Limitations: no limitations - History of Present Illness Initial Comments: This is a 60-year-old male here for evaluation of neck pain and headache, headache 5 days. No trauma noted. No fevers no nausea vomiting. Patient has history of neck disease with back surgery patient is concerned for character of her pain persisted. Patient states he does not want pain medication is Benedick the pain medication in the past. He denies fevers nausea vomiting or any neurological changes. Patient just concerned over persistence of headache MD Complaint: headache -: days(s) (5) Onset Description: gradual Location: occipital Severity: moderate Severity scale (1-10): 4 Quality: aching Consistency: intermittent Improves With: nothing Worsens With: none Associated Symptoms: nausea Treatments Prior to Arrival: none - Related Data Home Medications Medication Instructions Recorded Confirmed Acetaminophen [Tylenol] 1,000 mg PO QAM 08/23/16 08/20/18 Simvastatin [Zocor] 40 mg PO HS 08/23/16 08/20/18 Acetaminophen Tab [Tylenol] 500 mg PO HS 08/20/18 08/20/18 Aspirin EC [Ecotrin] 325 mg PO DAILY 08/20/18 08/20/18 Biotin 5 mg PO DAILY 08/20/18 08/20/18 Insulin Glargine,Hum.rec.anlog 7 unit SQ HS 08/20/18 08/20/18 [Basaglar Kwikpen U-100] metFORMIN HCL ER [Glucophage Xr] 1,000 mg PO AC-BRKFST 08/20/18 08/20/18 Previous Rx's Medication Instructions Recorded Nicotine 14Mg/24Hr Patch [Habitrol] 1 patch TRANSDERM DAILY@2100 #14 08/21/18 patch Allergies Allergy/AdvReac Type Severity Reaction Status Date / Time codeine Allergy Anaphylaxis Verified 06/24/19 16:04 propoxyphene Allergy Anaphylaxis Verified 06/24/19 16:04 [From Misha] Review of Systems ROS Statement: Those systems with pertinent positive or pertinent negative responses have been documented in the HPI. ROS Other: All systems not noted in ROS Statement are negative. 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 Past Anesthesia/Blood Transfusion Reactions: Previous Problems w/ Anesthesia, Family History of Problems w/ Anesthesia Additional Past Anesthesia/Blood Transfusion Reaction / Comment(s): had resp arrest in 1979 with back surgery and 1981 with resp & cardiac arrest with 2nd back surgery, has had several surgeries since then without complications. Father in 1969's had chills,tachycardia,and shakes with anesthesia. 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 Absent: scleral icterus, conjunctival injection, periorbital swelling ENT exam: Present: normal exam, mucous membranes moist Neck exam: Present: normal inspection. Absent: tenderness, meningismus, lymphadenopathy Respiratory exam: Present: normal lung sounds bilaterally. Absent: respiratory distress, wheezes, rales, rhonchi, stridor Cardiovascular Exam: Present: regular rate, normal rhythm, normal heart sounds. Absent: systolic murmur, diastolic murmur, rubs, gallop, clicks GI/Abdominal exam: Present: soft, normal bowel sounds. Absent: distended, tenderness, guarding, rebound, rigid Extremities exam: Present: normal inspection, full ROM, normal capillary refill. Absent: tenderness, pedal edema, joint swelling, calf tenderness Back exam: Present: normal inspection Neurological exam: Present: alert, oriented X3, CN II-XII intact Psychiatric exam: Present: normal affect, normal mood Skin exam: Present: warm, dry, intact, normal color. Absent: rash Course Vital Signs 06/24/19 06/24/19 06/24/19 16:00 16:04 17:04 Temperature 97.6 F Pulse Rate 83 70 69 Respiratory 20 20 20 Rate Blood Pressure 159/89 147/70 148/73 O2 Sat by Pulse 98 97 98 Oximetry - Reevaluation(s) Reevaluation #1: 06/24/19 18:11 Medical record is reviewed Reevaluation #2: 06/24/19 18:11 Headache is resolved here in the ER Medical Decision Making - Medical Decision Making 68 male here for evaluation of acute on chronic headache in nature. Patient given Motrin for headache treatment, patient can be discharged home - Radiology Data Radiology results: report reviewed (CT brain negative for acute disease), image reviewed Disposition Clinical Impression: Headache, Cervical sprain Disposition: HOME SELF-CARE Condition: Good Instructions (If sedation given, give patient instructions): Acute Headache (ED) Is patient prescribed a controlled substance at d/c from ED?: No Referrals: Alexandro Emery MD [Primary Care Provider] - 1-2 days
== END 2019-06-24 18:22 | disposition home or self-care (01) ==
LOC: EC 15:28
DX: S13.4XXA Sprain of ligaments of cervical spine, initial encounter (principal); R51 Headache; R11.0 Nausea; E78.5 Hyperlipidemia, unspecified; I10 Essential (primary) hypertension; H53.8 Other visual disturbances; H54.40 Blindness, one eye, unspecified eye; F17.200 Nicotine dependence, unspecified, uncomplicated; Z98.1 Arthrodesis status; Z79.82 Long term (current) use of aspirin; Z79.4 Long term (current) use of insulin; Z79.899 Other long term (current) drug therapy; Z88.5 Allergy status to narcotic agent
CPT/HCPCS: 70450; 99284; 96372; J8540; J1885

== ENCOUNTER 2019-06-25 09:17 | Emergency (ER) | payer MEDICARE ==
[2019-06-25 09:23] VITALS: TEMP 97.5
[2019-06-25] MEDS ORDERED: diphenhydrAMINE 50 MG/ML 1 ML VIAL IVP STA (10:18)
[2019-06-25] MEDS ORDERED: SODIUM CHLORIDE 0.9% 1,000 ML IV STA (10:18)
[2019-06-25] MEDS ORDERED: KETOROLAC 30 MG/ML 1 ML VIAL IVP STA (10:18)
[2019-06-25] MEDS ORDERED: ONDANSETRON 4 MG/2 ML VIAL IVP STA (10:18)
--- NOTE | 2019-06-25 10:35 | ED ---
Headache HPI - General Chief Complaint: Headache Stated Complaint: Migraine x6 days Time Seen by Provider: 06/25/19 09:57 Mode of arrival: ambulatory Limitations: no limitations - History of Present Illness Initial Comments: Patient is a 68-year-old male presenting to emergency Department with complaints of a headache 5 days. Patient was in the ER yesterday for same complaint. Patient states his headache did not go completely away yesterday but he was able to get some sleep. He woke up early this morning with a headache beginning again around his neck and increasing upwards and has steadily progressed again. Patient states his pain is currently 8/10. He describes the pain as starting at his neck/base of the skull and spreading upward, greater on the left side. Lawrence enrique has history of cervical fusion approximately 7 years ago. Patient denies any new trauma or falls. Patient denies any lightheadedness, vomiting, shortness of breath, chest pain, blurry vision. He has no numbness and tingling into his upper or lower extremities. Patient states he takes Tylenol twice a day for his pain and that has not been helping. He did take an extra dose yesterday and today however it is not improved. Patient did have CT of the head yesterday which was reviewed and showed no abnormalities. Patient has no other complaints at this time. Upon arrival to the ER, his vital signs are stable. - Related Data Home Medications Medication Instructions Recorded Confirmed Acetaminophen [Tylenol] 1,000 mg PO QAM 08/23/16 08/20/18 Simvastatin [Zocor] 40 mg PO HS 08/23/16 08/20/18 Acetaminophen Tab [Tylenol] 500 mg PO HS 08/20/18 08/20/18 Aspirin EC [Ecotrin] 325 mg PO DAILY 08/20/18 08/20/18 Biotin 5 mg PO DAILY 08/20/18 08/20/18 Insulin Glargine,Hum.rec.anlog 7 unit SQ HS 08/20/18 08/20/18 [Basaglar Kwikpen U-100] metFORMIN HCL ER [Glucophage Xr] 1,000 mg PO [id number] 08/20/18 08/20/18 Previous Rx's Medication Instructions Recorded Nicotine 14Mg/24Hr Patch [Habitrol] 1 patch TRANSDERM DAILY@2100 #14 08/21/18 patch Cyclobenzaprine [Flexeril] 5 mg PO BID #15 tablet 06/25/19 Allergies Allergy/AdvReac Type Severity Reaction Status Date / Time codeine Allergy Anaphylaxis Verified 06/24/19 16:04 propoxyphene Allergy Anaphylaxis Verified 06/24/19 16:04 [From Misha] Review of Systems ROS Statement: Those systems with pertinent positive or pertinent negative responses have been documented in the HPI. ROS Other: All systems not noted in ROS Statement are negative. 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 Past Anesthesia/Blood Transfusion Reactions: Previous Problems w/ Anesthesia, Family History of Problems w/ Anesthesia Additional Past Anesthesia/Blood Transfusion Reaction / Comment(s): had resp arrest in 1979 with back surgery and 1981 with resp & cardiac arrest with 2nd back surgery, has had several surgeries since then without complications. Father in 1970's had chills,tachycardia,and shakes with anesthesia. No hx blood transfu michael Past Psychological History: No Psychological Hx Reported Smoking Status: Current some day smoker Past Alcohol Use History: None Reported Past Drug Use History: None Reported - Past Family History Father Family Medical History: Cancer Additional Family Medical History / Comment(s): alcoholism, at age 82 with lung CA with mets Mother Family Medical History: Cancer Additional Family Medical History / Comment(s): brain CA Son(s) Family Medical History: Cancer General Exam - General Exam Comments Initial Comments: GENERAL: Well-appearing, well-nourished and in no acute distress. HEAD: Atraumatic, normocephalic. EYES: Pupils equal round and reactive to light, extraocular movements intact, sclera anicteric, conjunctiva are normal. ENT: TMs normal, nares patent, oropharynx clear without exudates. Moist mucous membranes. NECK: Supple without lymphadenopathy or JVD. Mild midline tenderness, and bilateral cervical paraspinal tenderness and tightness, slightly decreased range of motion secondary to fusion. LUNGS: Breath sounds clear to auscultation bilaterally and equal. No wheezes rales or rhonchi. HEART: Regular rate and rhythm without murmurs, rubs or gallops. ABDOMEN: Soft, nontender, normoactive bowel sounds. No guarding, no rebound. No masses appreciated. : Deferred EXTREMITIES: Normal range of motion, no pitting or edema. No clubbing or cyanosis. Strength is 5 out of 5 bilateral upper and lower extremities. Sensation is equal and bilateral. NEUROLOGICAL: Cranial nerves II through XII grossly intact. Normal speech, normal gait. PSYCH: Normal mood, normal affect. SKIN: Warm, Dry, normal turgor, no rashes or lesions noted. Limitations: no limitations Course Vital Signs 06/25/19 06/25/19 06/25/19 09:19 11:03 11:41 Temperature 97.5 F L Pulse Rate 100 84 86 Respiratory 20 18 16 Rate Blood Pressure 136/96 157/81 162/89 O2 Sat by Pulse 97 96 99 Oximetry Medical Decision Making - Medical Decision Making Patient is 68-year-old male presenting with a headache 5 days. He was seen in ER yesterday for same complaint. Vital signs stable. He has history of cervical fusion 7 years ago. Neuro exam is normal. There are no red flag symptoms. Patient does have cervical tenderness and cervical paraspinal tightness and tenderness. Neck x-ray showed no acute abnormalities, degenerative changes. CT of the brain that was done yesterday was reviewed. Hardware looks normal. Patient was given pain control, Zofran, Valium. He reports some improvement in symptoms. I discussed with patient this is most likely pertaining to muscle tightness surrounding his cervical fusion, that is causing tension headache. I suggested a trial of anti-inflammatories as well as muscle relaxant for his symptoms. He is agreement to this plan of care. Patient is stable for discharge at this time. Patient will continue with ibuprofen and trial of Flexeril. He will follow up with his doctor in the next few days. Return parameters were discussed with the patient and he verbalized understanding. Case discussed with Dr. Guido who did see the patient and agrees with this plan of care. - Lab Data Result diagrams: 06/25/19 09:04 06/25/19 09:04 Lab Results 06/25/19 06/25/19 Range/Units 09:04 09:04 WBC 14.2 H (3.8-10.6) k/uL RBC 4.85 (4.30-5.90) m/uL Hgb 16.0 (13.0-17.5) gm/dL Hct 47.4 (39.0-53.0) % MCV 97.6 (80.0-100.0) fL MCH 33.0 (25.0-35.0) pg MCHC 33.8 (31.0-37.0) g/dL RDW 13.0 (11.5-15.5) % Plt Count 326 (150-450) k/uL Neutrophils % 84 % Lymphocytes % 11 % Monocytes % 3 % Eosinophils % 0 % Basophils % 1 % Neutrophils # 12.0 H (1.3-7.7) k/uL Lymphocytes # 1.6 (1.0-4.8) k/uL Monocytes # 0.5 (0-1.0) k/uL Eosinophils # 0.0 (0-0.7) k/uL Basophils # 0.1 (0-0.2) k/uL Sodium 140 (137-145) mmol/L Potassium 4.5 (3.5-5.1) mmol/L Chloride 106 (98-107) mmol/L Carbon Dioxide 23 (22-30) mmol/L Anion Gap 11 mmol/L BUN 29 H (9-20) mg/dL Creatinine 0.91 (0.66-1.25) mg/dL Est GFR (CKD-EPI)AfAm >90 (>60 ml/min/1.73 sqM) Est GFR (CKD-EPI)NonAf 86 (>60 ml/min/1.73 sqM) Glucose 134 H (74-99) mg/dL Calcium 10.5 H (8.4-10.2) mg/dL Total Bilirubin 0.4 (0.2-1.3) mg/dL AST 20 (17-59) U/L ALT 17 (4-49) U/L Alkaline Phosphatase 70 (38-126) U/L Total Protein 8.1 (6.3-8.2) g/dL Albumin 4.9 (3.5-5.0) g/dL Disposition Clinical Impression: Tension headache, Cervical strain Disposition: HOME SELF-CARE Condition: Stable Instructions (If sedation given, give patient instructions): Tension Headache (ED) Additional Instructions: Please return to the Emergency Department if symptoms worsen or any other concerns. Take an anti-inflammatory such as ibuprofen or Aleve for 1 week. Trial of muscle relaxer as well. Follow-up with PCP or orthopedic surgeon for further evaluation, treatment options. Prescriptions: Cyclobenzaprine [Flexeril] 5 mg PO BID #15 tablet Is patient prescribed a controlled substance at d/c from ED?: No Referrals: Alexandro Emery MD [Primary Care Provider] - 1-2 days
[2019-06-25 10:44] LABS: Basophils # (A) 0.1 k/uL (0-0.2); Basophils % (A) 1 %; Eosinophils % (A) 0 %; HCT 47.4 % (39.0-53.0); Lymphocytes # (A) 1.6 k/uL (1.0-4.8); Lymphocytes % (A) 11 %; MCHC 33.8 g/dL (31.0-37.0); MCV 97.6 fL (80.0-100.0); Mean Platelet Volume 7.5; Monocytes # (A) 0.5 k/uL (0-1.0); Monocytes % (A) 3 %; Neutrophils % (A) 84 %; Platelet Count 326 k/uL (150-450); RBC 4.85 m/uL (4.30-5.90); WBC 14.2 k/uL (3.8-10.6)
[2019-06-25 10:55] LABS: ALT 17 U/L (4-49); AST 20 U/L (17-59); African American GFR (CKD) >90 (>60 ml/min/1.73 sqM); Albumin 4.9 g/dL (3.5-5.0); Alkaline Phosphatase 70 U/L (38-126); Anion Gap 11 mmol/L; Blood Urea Nitrogen 29 mg/dL (9-20); Calcium 10.5 mg/dL (8.4-10.2); Carbon Dioxide 23 mmol/L (22-30); Chloride 106 mmol/L (98-107); Glucose 134 mg/dL (74-99); Non-African American GFR(CKD) 86 (>60 ml/min/1.73 sqM); Potassium 4.5 mmol/L (3.5-5.1); Sodium 140 mmol/L (137-145); Total Bilirubin 0.4 mg/dL (0.2-1.3); Total Protein 8.1 g/dL (6.3-8.2)
[2019-06-25] MEDS ORDERED: MORPHINE SULFATE 4 MG/ML SYRINGE IVP STA (11:16)
--- NOTE | 2019-06-25 11:30 | XR ---
EXAMINATION TYPE: XR cervical spine comp DATE OF EXAM: 06/25/2019 COMPARISON: None HISTORY: 68-year-old male pain and history of fusion. TECHNIQUE: 5 views FINDINGS: No predental space widening or prevertebral soft tissue swelling. Patient is status post C4-C7 ACDF. Moderate degenerative disc disease below the fusion at C7-T1. Facet and uncovertebral joint arthropat hy throughout. Alignment is maintained. On the right, compatible mild and moderate bony neuroforaminal narrowing. Possibly more severe narrow ing at C6-C7. On the left, moderate to severe bony neural foraminal narrowing at C3-C4, C4-C5 and more severe at C7 -T1. Normal odontoid view. IMPRESSION: Status post C4-C7 ACDF. Moderate degenerative disc disease below the fusion at C7-T1. No malalignment . Variable bony neuroforaminal narrowing as outlined above.
[2019-06-25 11:41] VITALS: BP 162/89; PULSE 86; RESP 16
[2019-06-25] MEDS ORDERED: DIAZEPAM 5 MG/ML 2 ML INJ IVP STA (12:08)
== END 2019-06-25 12:45 | disposition home or self-care (01) ==
LOC: EC 09:17
DX: S16.1XXA Strain of muscle, fascia and tendon at neck level, initial encounter (principal); G44.209 Tension-type headache, unspecified, not intractable; Z98.1 Arthrodesis status; M47.812 Spondylosis without myelopathy or radiculopathy, cervical region; E78.5 Hyperlipidemia, unspecified; I10 Essential (primary) hypertension; R73.03 Prediabetes; H54.8 Legal blindness, as defined in USA; F17.200 Nicotine dependence, unspecified, uncomplicated; Z88.5 Allergy status to narcotic agent; Z79.4 Long term (current) use of insulin; Z79.82 Long term (current) use of aspirin; Z79.891 Long term (current) use of opiate analgesic; Z79.899 Other long term (current) drug therapy; X58.XXXA Exposure to other specified factors, initial encounter
CPT/HCPCS: 36415; 80053; 85025; 72050; 99284; 96374; 96375 ×4; 96361; J2270; J1200; J3360; J2405; J1885